=== PATIENT | male | born 1960 | race African-American/Black ===

== ENCOUNTER 2025-03-14 14:09 | Inpatient (IN) | payer OTHER ==
[2025-03-14 14:36] VITALS: BMI 31.4
[2025-03-14] MEDS ORDERED: NALOXONE (NARCAN) HCL 4 MG/0.1 ML SPRAY NS PRN (15:02)
[2025-03-14] MEDS ORDERED: POLYETHYLENE GLYCOL (HEALTHYLAX) 3350 17 GM PACKET PO PRN (15:02)
[2025-03-14] MEDS ORDERED: MAGNESIUM HYDROX 2400MG/30ML ORAL SUSPENSION 30 ML CUP PO PRN (15:02)
[2025-03-14] MEDS ORDERED: IBUPROFEN 400 MG TABLET (FP) PO PRN (15:02)
[2025-03-14] MEDS ORDERED: IBUPROFEN 600 MG TABLET (FP) PO PRN (15:02)
[2025-03-14] MEDS ORDERED: BENZONATATE 200 MG CAPSULE PO PRN (15:02)
[2025-03-14] MEDS ORDERED: MAG HYDROX/AL HYDROX/SIMETH 30 ML UNIT-DOSE CUP PO PRN (15:02)
[2025-03-14] MEDS ORDERED: guaiFENesin 600 MG TABLET.ER (FP) PO PRN (15:02)
[2025-03-14] MEDS ORDERED: LOPERAMIDE HCL 2 MG CAPSULE PO PRN (15:02)
[2025-03-14] MEDS: ACETAMINOPHEN 325 MG TABLET (FP) PO PRN (18:38)
[2025-03-14] MEDS: THIAMINE 100 MG TABLET PO SCH (22:16)
[2025-03-14] MEDS: MELATONIN 5 MG TABLETS PO SCH (22:16)
[2025-03-14] MEDS: hydrOXYzine PAMOATE 25 MG CAPSULE (FP) PO PRN (22:16)
[2025-03-14] MEDS: APIXABAN 5 MG TABLET PO SCH (22:49)
[2025-03-15 09:08] LABS: CHLORIDE 109 mmol/L (98-107); POTASSIUM 3.8 mmol/L (3.5-5.1); SODIUM 141 mmol/L (136-145)
[2025-03-15 09:14] LABS: HEMATOCRIT 35.6 % (40.1-51.0); HEMOGLOBIN 11.3 g/dL (13.7-17.5); MCHC 31.7 g/dl (32.3-36.5); MEAN CELL VOLUME 91.3 fl (79.0-92.2); PLATELET COUNT 181 x10^3/uL (163-337); RDW 14.5 % (12.2-16.4)
[2025-03-15 09:33] LABS: ALBUMIN 3.3 g/dl (3.4-5.0); CALCIUM 9.6 mg/dL (8.5-10.1)
[2025-03-15 09:34] LABS: ANION GAP 5 mmol/L (4-13); BLOOD UREA NITROGEN 20.9 mg/dL (7-18); CO2 27 mmol/L (21-32); GLUCOSE,RANDOM 100 mg/dL (74-106)
[2025-03-15 09:37] LABS: CREATININE 0.9 mg/dL (0.55-1.3); SGOT/AST 27 U/L (15-37); SGPT/ALT 27 U/L (13-61)
[2025-03-15 09:38] LABS: BILIRUBIN,TOTAL 0.3 mg/dL (0.2-1); TOT PROT 6.5 g/dl (6.4-8.2)
[2025-03-15 09:39] LABS: ALK PHOS 68 U/L (45-117)
[2025-03-15] MEDS: PRENATAL VITAMINS W/ FOLIC ACID TABLET (FP) PO SCH (09:48)
[2025-03-15] MEDS: GABAPENTIN 400 MG CAPSULE PO ONE (10:16)
[2025-03-15 11:13] LABS: SYPHILIS W/ RPR CONF NON-REACTIVE (NONREACTIVE)
[2025-03-15 11:40] LABS: HCV DIAGNOSTIC IN-HOUSE W/RFLX NON-REACTIVE (NONREACTIVE)
[2025-03-15 11:50] LABS: HIV INTERPRETATION NEGATIVE (NEGATIVE)
[2025-03-15 12:41] LABS: PH,URINE 6.5 (5.0-8.0); URINE APPEARANCE CLEAR; URINE BILIRUBIN NEGATIVE (NEGATIVE); URINE COLOR YELLOW; URINE GLUCOSE (UA) NEGATIVE (NEGATIVE); URINE KETONE NEGATIVE (NEGATIVE); URINE LEUK ESTERASE NEGATIVE (NEGATIVE); URINE NITRITE NEGATIVE (NEGATIVE); URINE PROTEIN NEGATIVE (NEGATIVE); URINE UROBILINOGEN 0.2 mg/dL (0.2-1.0)
[2025-03-15] MEDS: GABAPENTIN 400 MG CAPSULE PO SCH (14:00)
[2025-03-16] MEDS: amLODIPine BESYLATE 5 MG TABLET (FP) PO SCH (09:16)
[2025-03-16] MEDS: ACETAMINOPHEN 500 MG TABLET (FP) PO PRN (11:05)
[2025-03-16] MEDS: cloNIDine HCL 0.1 MG TABLET PO ONE (12:44)
[2025-03-17] MEDS: ACETAMINOPHEN 500 MG TABLET (FP) PO PRN (18:57)
[2025-03-17] MEDS: TAMSULOSIN HCL 0.4 MG CAP PO SCH (21:16)
[2025-03-17] MEDS ORDERED: ACETAMINOPHEN 500 MG TABLET (FP) PO SCH (22:00)
[2025-03-18] MEDS: TAMSULOSIN HCL 0.4 MG CAP PO ONE (14:10)
[2025-03-18] MEDS: LIDOCAINE 5% TOPICAL PATCH TP SCH (14:10)
[2025-03-18] MEDS: LIDOCAINE PATCH REMOVAL MC SCH (22:35)
[2025-03-19] MEDS: amLODIPine BESYLATE 10 MG TABLET (FP) PO SCH (10:08)
[2025-03-19] MEDS: TAMSULOSIN HCL 0.4 MG CAP PO SCH (10:08)
[2025-03-19] MEDS ORDERED: METHYL SALICYLATE/MENTHOL 30 GM TUBE TP PRN (11:04)
[2025-03-19] MEDS: BACLOFEN 10 MG TABLET (FP) PO SCH (14:40)
[2025-03-19] MEDS: GABAPENTIN 400 MG CAPSULE PO SCH (14:40)
[2025-03-19] MEDS: LIDOCAINE 5% TOPICAL PATCH TP SCH (14:42)
[2025-03-19] MEDS: INSULIN ASPART SLIDING SCALE (NOVOLOG) 1 VIAL SQ SCH (16:32)
[2025-03-19] MEDS: MIRTAZAPINE 15 MG TABLET (FP) PO SCH (21:08)
[2025-03-19] MEDS: ACETAMINOPHEN 500 MG TABLET (FP) PO PRN (21:08)
[2025-03-19] MEDS: LIDOCAINE PATCH REMOVAL MC SCH (21:54)
[2025-03-20] MEDS ORDERED: INSULIN (NOVOLOG) ASPART 100 UNITS/ML 10ML VIAL ONE (06:30)
[2025-03-20] MEDS: TAMSULOSIN HCL 0.4 MG CAP PO SCH (10:19)
[2025-03-21] MEDS ORDERED: INSULIN (NOVOLOG) ASPART 100 UNITS/ML 10ML VIAL ONE (16:32)
[2025-03-21] MEDS: BACLOFEN 10 MG TABLET (FP) PO SCH (21:02)
[2025-03-24] MEDS: APIXABAN 2.5 MG TABLET PO SCH (21:10)
[2025-03-24] MEDS: BENZOCAINE/MENTHOL (CHLORASEPTIC ) LOZENGE MM PRN (21:25)
[2025-03-25] MEDS: FINASTERIDE 5 MG TABLET (FP) PO SCH (09:52)
[2025-03-26] MEDS ORDERED: INSULIN (NOVOLOG) ASPART 100 UNITS/ML 10ML VIAL ONE (16:58)
[2025-03-27] MEDS ORDERED: INSULIN (NOVOLOG) ASPART 100 UNITS/ML 10ML VIAL ONE (16:32)
[2025-03-27 22:39] VITALS: TEMP 97.3
[2025-03-28 06:38] VITALS: RESP 18
[2025-03-28 10:24] VITALS: BP 157/91; PULSE 95
== END 2025-03-28 10:00 | disposition home or self-care (01) | DRG 772 ==
LOC: YASAS 14:09 → Y3NR 17:54 → Y5N 03-16 12:30
PROVIDERS: ADMIT Psychiatry & Neurology Pain Medicine; ATTEND Allergy & Immunology
PROC: HZ42ZZZ Group Counseling for Substance Abuse Treatment, Cognitive-Behavioral (ICD-10-PCS; principal; 2025-03-14)
DX: F14.20 Cocaine dependence, uncomplicated (principal); F12.20 Cannabis dependence, uncomplicated; F17.210 Nicotine dependence, cigarettes, uncomplicated; F43.10 Post-traumatic stress disorder, unspecified; F41.1 Generalized anxiety disorder; F32.9 Major depressive disorder, single episode, unspecified; I10 Essential (primary) hypertension; M54.50 Low back pain, unspecified; G89.29 Other chronic pain; N40.1 Benign prostatic hyperplasia with lower urinary tract symptoms; R35.0 Frequency of micturition; R33.8 Other retention of urine; Z86.718 Personal history of other venous thrombosis and embolism; Z79.01 Long term (current) use of anticoagulants; Z88.8 Allergy status to other drugs, medicaments and biological substances
CPT/HCPCS: 36415; 80053; 80305; 80307; 81003; 82962; 83036; 85027; 86780; 86803; 87389; 87811; 93005; 93010; J0475